=== PATIENT | female | born 1975 | race Caucasian/White ===

== ENCOUNTER 2018-03-26 13:35 | Emergency (ER) | payer OTHER ==
[~2018-03-26] VITALS: Ht 154.9 cm; Wt 55.8 kg
[2018-03-26 14:35] LABS: PREGNANCY TEST, URINE NEGATIVE (NEGATIVE)
[2018-03-26 14:36] LABS: CLARITY,URINE CLOUDY (CLEAR); COLOR,URINE YELLOW (YELLOW); LEUKOCYTE ESTERASE ,URINE 1+ (NEGATIVE); NITRITE,URINE NEGATIVE (NEGATIVE); PROTEIN,URINE DIPSTICK NEGATIVE (NEGATIVE)
[2018-03-26 14:37] LABS: BILIRUBIN,URINE NEGATIVE (NEGATIVE); KETONES,URINE 2+ (NEGATIVE); URINE UROBILINOGEN 0.2 mg/dL (0.2 - 1)
[2018-03-26 14:41] LABS: BASOPHILS % 0.3 % (0.0-1.0); EOSINOPHILS % 0.1 % (0.0-6.0); HEMATOCRIT 40.5 % (34.2-44.1); HEMOGLOBIN 13.6 g/dL (12.0-16.0); LYMPHOCYTES # (AUTO) 0.5 (1.0-3.2); LYMPHOCYTES % 3.2 % (18.0-39.1); MEAN CORPUSCULAR HEMOGLOBIN 31.2 pg (28-32); MEAN CORPUSCULAR HGB CONC 33.6 g/dL (31-35); MEAN CORPUSCULAR VOLUME 92.9 fL (81-99); MONOCYTES # (AUTO) 1.2 (0.2-0.8); MONOCYTES % 7.4 % (4.4-11.3); NEUTROPHILS % 88.4 % (38.7-80.0); PLATELET COUNT 248 x10e3/uL (140-360); RED BLOOD COUNT 4.36 x10e6/uL (3.6-5.1); RED CELL DISTRIBUTION WIDTH 12.4 % (11.7-14.4)
[2018-03-26 14:48] LABS: BACTERIA,URINE FEW /HPF; EPITHELIAL CELLS,URINE MODERATE /LPF; MUCUS,URINE FEW (RARE)
[2018-03-26 15:01] LABS: ALANINE AMINOTRANSFERASE 13 IU/L (0-55); ALBUMIN 4.3 g/dL (3.5-5.0); ALBUMIN/GLOBULIN RATIO 1.5 (0.8-2.0); ALKALINE PHOSPHATASE 38 IU/L (40-150); ANION GAP 13.9 mmol/L (8-16); BLOOD UREA NITROGEN 14 mg/dL (7-26); BUN/CREATININE RATIO 18 (6-25); CALCIUM 10.1 mg/dL (8.4-10.2); CARBON DIOXIDE 27 mmol/L (22-29); CHLORIDE 98 mmol/L (98-107); CREATININE, SERUM 0.79 mg/dL (0.57-1.11); EST GLOMERULAR FILTRATION RATE > 60 ML/MIN (60-); GLUCOSE 91 mg/dL (74-118); POTASSIUM 3.9 mmol/L (3.5-5.1); SODIUM 135 mmol/L (136-145)
[2018-03-26] MEDS ORDERED: MORPHINE SULFATE 2 MG/ML SYR IV STA ×2 (15:23→18:38)
[2018-03-26] MEDS ORDERED: SODIUM CHLORIDE 0.9% 1000ML 1,000 ML IV SCH (15:30)
[2018-03-26] MEDS ORDERED: DIATRIZOATE MEGL/DIATRIZOA SOD 30 ML BTL PO ONE (15:30)
[2018-03-26] MEDS ORDERED: ONDANSETRON HCL 4 MG ORAL DISINTEGRATING TAB PO ONE ×2 (15:30→18:45)
--- NOTE | 2018-03-26 17:21 | Diagnostic Imaging Report ---
PROCEDURE: CT ABDOMEN AND PELVIS WITH CONTRAST TECHNIQUE: The abdomen and pelvis were scanned utilizing a multidetector helical scanner from the diaphragm to the lesser trochanter after the IV administration of 100 cc of Isovue 370 and the oral administration of dilute Gastrografin. Coronal and sagittal multiplanar reformations were obtained. COMPARISON: None. INDICATIONS: LLQ PAIN FINDINGS: LOWER THORAX: Unremarkable. HEPATOBILIARY: No focal hepatic lesions. No biliary ductal dilatation. SPLEEN: No splenomegaly. PANCREAS: No focal masses or ductal dilatation. ADRENALS: No adrenal nodules. KIDNEYS/URETERS: No hydronephrosis, stones, or solid mass lesions. PELVIC ORGANS/BLADDER: Bladder and uterus are unremarkable. No adnexal masses. PERITONEUM / RETROPERITONEUM: No free air or fluid. LYMPH NODES: No lymphadenopathy. VESSELS: Unremarkable GI TRACT: No bowel dilation or evidence of obstruction. Descending and sigmoid colon diverticulosis. There is an approximately 5 cm segment of the proximal sigmoid colon which shows moderate wall thickening and mild to moderate surrounding fat stranding (best seen on coronal image 30-36 (. No foci of extraluminal air or adjacent, well-defined, enhancing fluid collections. Rest of the bowel shows no wall thickening or surrounding inflammation. BONES AND SOFT TISSUES: No acute bony abnormalities. No aggressive lytic lesions. 1.4 x 0.9 cm focal sclerotic lesion in the L4 vertebral body, which has a nonaggressive appearance and likely represents a bone island. Soft tissues are grossly unremarkable. IMPRESSION: 1. Findings consistent with acute proximal sigmoid diverticulitis, in the appropriate clinical setting. No evidence of perforation or adjacent abscess formation. Umesh Chopra M.D. Dictated by: Umesh Chopra M.D. on 03/26/2018 at 17:24 Electronically approved by: Umesh Chopra M.D. on 03/26/2018 at 17:24
[2018-03-26] MEDS ORDERED: METRONIDAZOLE 500MG/NS 100ML 100 ML IV STA (17:30)
[2018-03-26] MEDS ORDERED: CIPROFLOXACIN 400 MG/D5W 200ML 200 ML IV STA (17:30)
[2018-03-26] MEDS ORDERED: IOPAMIDOL 370 MG/ML 200 ML INFUS..BTL INJ ONE (20:41)
[2018-03-26] MEDS ORDERED: SODIUM CHLORIDE 0.9% 50ML 50 ML ONE (20:41)
[2018-03-26] MEDS ORDERED: PROMETHAZINE HCL 25 MG TAB PO ONE (20:45)
[2018-03-26 20:51] VITALS: BP 117/84
[2018-03-26] MEDS ORDERED: CIPRO500 MG PO (20:51)
[2018-03-26] MEDS ORDERED: TYLENOL WITH C1 EACH PO (20:51)
[2018-03-26] MEDS ORDERED: ZOFRAN ODT4 MG SL (20:51)
[2018-03-26] MEDS ORDERED: FLAGYL250 MG PO (20:51)
== END 2018-03-26 21:57 | disposition home or self-care (01) ==
LOC: ER 13:35
DX: R10.32 Left lower quadrant pain (principal); R11.2 Nausea with vomiting, unspecified; K57.32 Diverticulitis of large intestine without perforation or abscess without bleeding; F32.9 Major depressive disorder, single episode, unspecified
CPT/HCPCS: 36415; 74177; 80053; 81001; 81025; 85025; 96374; 99284; J0744; J2270; J7030; Q9967

== ENCOUNTER → 2018-05-18 | Day surgery (SDC) | payer OTHER ==
[~2018-05-18] MED LIST: CIPRO500 MG PO; FENTANYL CITRATE/PF 100MCG/2 ML INJ ONE; FLAGYL250 MG PO; FLUOXETINE HCL20 M1 PO; HYOSCYAMINE SULFATE 0.5 MG/ML AMP ONE; MIDAZOLAM HCL 2 MG/2 ML VIAL ONE; PROPOFOL IV EMULSION 10 MG/ML 50 ML VIAL ONE; TYLENOL WITH C1 EACH PO; WELLBUTRIN SR150 MG PO; ZOFRAN ODT4 MG; ZOFRAN ODT4 MG SL
--- NOTE | 2018-05-18 11:28 | Operative Report ---
DATE OF PROCEDURE: May 18, 2018 PROCEDURE PERFORMED: Colonoscopy and a polypectomy note. REFERRING PHYSICIAN: Dr. Tai Dugan INDICATIONS FOR COLONOSCOPY: History of diverticulitis. MEDICATION: Patient was done under MAC. Please see anesthesiologist note. PROCEDURE IN DETAIL: With the patient in left lateral decubitus position, flexible fiberoptic Olympus colonoscope was inserted into the rectum with ease and advanced all the way to the cecum. It was then withdrawn slowly and the mucosa overlying the cecum, ascending colon, transverse, and descending, other than for scattered diverticular disease, appeared to be within normal limits. One polyp was snared, 1 polyp was hot biopsied from the sigmoid colon. Also diverticular disease involved the sigmoid colon. One minute polyp was hot biopsied from the rectum. The scope was then retroflexed into the distal rectum, and small internal hemorrhoids were noted, none of which was actively bleeding. The scope was then straightened out. It was subsequently withdrawn. Patient tolerated the procedure well. IMPRESSION: 1. Diverticulosis. 2. Sigmoid colon polyps x2, 1 snared and site hemoclipped x2 and 1 hot biopsied. 3. Rectal polyp, hot biopsied. 4. Internal hemorrhoids, none actively bleeding. PLAN: Follow up histology. Initiate high-fiber low-fat diet. Initiate high-fiber supplement. Patient will need a followup colonoscopy in 3 years. Job#: [id number] cc:TAI DUGAN MD
== END | disposition home or self-care (01) ==
LOC: OR 07:02
PROVIDERS: ATTEND Internal Medicine Gastroenterology
DX: Z09 Encounter for follow-up examination after completed treatment for conditions other than malignant neoplasm (principal); K63.5 Polyp of colon; K62.1 Rectal polyp; K57.92 Diverticulitis of intestine, part unspecified, without perforation or abscess without bleeding; K64.8 Other hemorrhoids; F32.9 Major depressive disorder, single episode, unspecified; Z88.8 Allergy status to other drugs, medicaments and biological substances
CPT/HCPCS: 45384; 45385; 81025; J1980; J2250; 44391

== ENCOUNTER 2019-09-29 04:04 | Emergency (ER) | payer OTHER ==
[~2019-09-29] VITALS: Ht 154.9 cm; Wt 55.8 kg
[~2019-09-29 04:04] MED LIST changes: -FENTANYL CITRATE/PF 100MCG/2 ML INJ ONE; -HYOSCYAMINE SULFATE 0.5 MG/ML AMP ONE; -MIDAZOLAM HCL 2 MG/2 ML VIAL ONE; -PROPOFOL IV EMULSION 10 MG/ML 50 ML VIAL ONE
[2019-09-29] MEDS ORDERED: KETOROLAC TROMETHAMINE 30 MG/ML VIAL IV STA (04:51)
[2019-09-29] MEDS ORDERED: ONDANSETRON HCL INJ 2MG/ML 2ML 2 MG/ML VIAL IV STA (04:53)
[2019-09-29 04:59] LABS: BASOPHILS % 0.4 % (0.0-1.0); EOSINOPHILS # (AUTO) 0.2 (0.0-0.4); EOSINOPHILS % 2.5 % (0.0-6.0); HEMATOCRIT 39.3 % (34.2-44.1); HEMOGLOBIN 12.9 g/dL (12.0-16.0); LYMPHOCYTES # (AUTO) 1.8 (1.0-3.2); LYMPHOCYTES % 19.5 % (18.0-39.1); MEAN CORPUSCULAR HEMOGLOBIN 31.1 pg (28-32); MEAN CORPUSCULAR HGB CONC 32.8 g/dL (31-35); MEAN CORPUSCULAR VOLUME 94.7 fL (81-99); MONOCYTES # (AUTO) 0.7 (0.2-0.8); NEUTROPHILS # (AUTO) 6.5 (2.1-6.9); NEUTROPHILS % 70.1 % (38.7-80.0); PLATELET COUNT 254 x10e3/uL (140-360); RED BLOOD COUNT 4.15 x10e6/uL (3.6-5.1); RED CELL DISTRIBUTION WIDTH 12.3 % (11.7-14.4)
[2019-09-29 05:00] LABS: BILIRUBIN,URINE NEGATIVE (NEGATIVE); CLARITY,URINE SL CLOUDY (CLEAR); COLOR,URINE YELLOW (YELLOW); KETONES,URINE NEGATIVE (NEGATIVE); LEUKOCYTE ESTERASE ,URINE NEGATIVE (NEGATIVE); NITRITE,URINE NEGATIVE (NEGATIVE); PROTEIN,URINE DIPSTICK NEGATIVE (NEGATIVE); URINE UROBILINOGEN 0.2 mg/dL (0.2 - 1)
[2019-09-29 05:11] LABS: ALANINE AMINOTRANSFERASE 12 IU/L (0-55); ALBUMIN 3.7 g/dL (3.5-5.0); ALBUMIN/GLOBULIN RATIO 1.4 (0.8-2.0); ALKALINE PHOSPHATASE 36 IU/L (40-150); ANION GAP 12.5 mmol/L (8-16); BLOOD UREA NITROGEN 14 mg/dL (7-26); BUN/CREATININE RATIO 15 (6-25); CARBON DIOXIDE 24 mmol/L (22-29); CHLORIDE 102 mmol/L (98-107); CREATININE, SERUM 0.91 mg/dL (0.57-1.11); EST GLOMERULAR FILTRATION RATE > 60 ML/MIN (60-); GLUCOSE 100 mg/dL (74-118); POTASSIUM 3.5 mmol/L (3.5-5.1); SODIUM 135 mmol/L (136-145)
[2019-09-29] MEDS ORDERED: DIATRIZOATE MEGL/DIATRIZOA SOD 30 ML BTL PO ONE (05:23)
[2019-09-29 05:25] LABS: BACTERIA,URINE MANY /HPF; EPITHELIAL CELLS,URINE MODERATE /LPF; RBC,URINE 0-5 /HPF (0-5)
[2019-09-29] MEDS ORDERED: SODIUM CHLORIDE 0.9% 50ML 50 ML ONE (06:25)
[2019-09-29] MEDS ORDERED: IOPAMIDOL 370 MG/ML 200 ML INFUS..BTL INJ ONE (06:26)
--- NOTE | 2019-09-29 07:00 | NUR ---
report given to wandy pryor
--- NOTE | 2019-09-29 07:25 | Diagnostic Imaging Report ---
EXAM: CT Abdomen and Pelvis WITH contrast INDICATION: Right lower quadrant abdominal pain, history of diverticulitis COMPARISON: CT abdomen/pelvis with contrast 03/26/2018. TECHNIQUE: Abdomen and pelvis were scanned utilizing a multidetector helical scanner from the lung base to the pubic symphysis after administration of IV contrast. Coronal and sagittal reformations were obtained. Routine protocol was performed. Scan was performed when during portal venous phase. IV CONTRAST: 100 cc of Isovue 370 ORAL CONTRAST: Gastrografin COMPLICATIONS: None RADIATION DOSE: Total DLP: 332.7 mGy*cm Estimated effective dose: (DLP x 0.015 x size factor) mSv CTDIvol has been reviewed. It is below the limits set by the Radiation Protocol Committee (RPC). FINDINGS: Somewhat limited secondary to motion artifact in the upper abdomen. LINES and TUBES: None. LOWER THORAX: Unremarkable HEPATOBILIARY: The hepatic dome is partially excluded from the [id number]. No evidence of focal lesion. No biliary ductal dilation. GALLBLADDER: No radio-opaque stones or sludge. No wall thickening. SPLEEN: No splenomegaly. PANCREAS: No focal masses or ductal dilatation. ADRENALS: No adrenal nodules KIDNEYS/URETERS: Kidneys enhance symmetrically. No evidence of hydronephrosis, solid mass, or stone. GI TRACT: There is colonic diverticulosis with focal wall thickening and mild surrounding stranding within the distal descending colon. PELVIC ORGANS/BLADDER: Unremarkable. LYMPH NODES: No lymphadenopathy. VESSELS: Minimal atherosclerotic calcifications in the abdominal aorta. PERITONEUM / RETROPERITONEUM: No free air or fluid. BONES AND SOFT TISSUES: Unchanged sclerotic lesion in the posterior aspect of the L4 vertebral body (sagittal image 65, 1198 HU), likely a bone island. CONCLUSION: Acute mild descending colonic diverticulitis. No evidence of perforation or abscess. Signed by: Dr. Kirsten Bolaños MD on 09/29/2019 7:22 AM
[2019-09-29 07:36] VITALS: BP 127/84
== END 2019-09-29 07:48 | disposition home or self-care (01) ==
LOC: ER 04:04
DX: R10.31 Right lower quadrant pain (principal)
CPT/HCPCS: 36415; 74177; 80053; 81001; 81025; 83690; 85025; 99284; J1885; J2405; Q9967

== ENCOUNTER → 2019-11-29 | Day surgery (SDC) | payer OTHER ==
[~2019-11-29] MED LIST changes: +FENTANYL CITRATE/PF 100MCG/2 ML INJ ONE; +HYOSCYAMINE 0.125 MG TAB ONE; +KETAMINE HCL INJ 50 MG/ML 10 ML VIAL ONE; +MIDAZOLAM HCL 2 MG/2 ML VIAL ONE; +PROPOFOL IV EMULSION 10 MG/ML 50 ML VIAL ONE; +TOPIRAMATE25 MG PO
[2019-11-29 10:03] VITALS: BP 92/77
--- NOTE | 2019-11-29 17:50 | Operative Report ---
DATE OF PROCEDURE: 11/29/2019 SURGEON: Ra Muniz MD PROCEDURE: Colonoscopy with polypectomy. INDICATIONS FOR COLONOSCOPY: Personal history of colon polyps, history of diverticulitis. Indication. MEDICATIONS: The patient was done under MAC, please see anesthesiologist's note. PROCEDURE IN DETAIL: With the patient in left lateral decubitus position, a flexible fiberoptic Olympus colonoscope was inserted into the rectum with ease and advanced all the way to the cecum. The scope was then withdrawn slowly. Mucosa overlying the cecum appeared to be within normal limits. One polyp was hot biopsied from the distal ascending colon. Diverticular disease was scattered pretty much throughout the colon, but was more prominent in the left colon. The transverse colon other than for diverticulosis appeared to be within normal limits. One polyp was removed per cold biopsy forceps from the proximal descending colon. The rest of the descending and sigmoid revealed some diverticular disease. The mucosa overlying the rectum appeared to be within normal limits. The scope was then retroflexed into the distal rectum and small internal hemorrhoids were noted, none of which was actively bleeding. The scope was then straightened out. It was subsequently withdrawn. The patient tolerated the procedure well. IMPRESSION: 1. Ascending colon polyp, hot biopsied. 2. Diverticulosis. 3. Descending colon polyp, cold biopsied. 4. Internal hemorrhoids, none actively bleeding. PLAN: Follow up histology. Initiate high-fiber, low-fat diet. Initiate high-fiber supplement. The patient might benefit from a followup colonoscopy in 3 to 5 years. Ra Muniz MD [facility] [place] /[id number] cc: Rustam La
== END | disposition home or self-care (01) ==
LOC: OR 06:00
PROVIDERS: ATTEND Internal Medicine Gastroenterology
DX: K57.92 Diverticulitis of intestine, part unspecified, without perforation or abscess without bleeding (principal); D12.2 Benign neoplasm of ascending colon; K64.8 Other hemorrhoids; Z88.8 Allergy status to other drugs, medicaments and biological substances; G70.9 Myoneural disorder, unspecified; F32.9 Major depressive disorder, single episode, unspecified; Z68.25 Body mass index [BMI] 25.0-25.9, adult
CPT/HCPCS: 45380; 45384; 81025; J2250; J2704; J3010

== ENCOUNTER → 2020-02-27 | Outpatient (CLI) | payer OTHER ==
[~2020-02-27] MED LIST changes: +DIATRIZOATE MEGL/DIATRIZOA SOD 30 ML BTL PO ONE; -FENTANYL CITRATE/PF 100MCG/2 ML INJ ONE; -HYOSCYAMINE 0.125 MG TAB ONE; +IOPAMIDOL 370 MG/ML 200 ML INFUS..BTL INJ ONE; -KETAMINE HCL INJ 50 MG/ML 10 ML VIAL ONE; -MIDAZOLAM HCL 2 MG/2 ML VIAL ONE; -PROPOFOL IV EMULSION 10 MG/ML 50 ML VIAL ONE; +SODIUM CHLORIDE 0.9% 50ML 50 ML ONE
--- NOTE | 2020-02-27 15:21 | Diagnostic Imaging Report ---
ADDENDUM #1 There was a typographical error in the original report. The GI TRACT section should read: GI TRACT: Mild colonic DIVERTICULOSIS. No CT evidence of diverticulitis. No abnormal bowel thickening. No bowel obstruction. Signed by: Mike Campos MD on 03/03/2020 12:04 PM ORIGINAL REPORT EXAM: CT Abdomen and Pelvis WITH intravenous contrast INDICATION: Right lower quadrant abdominal pain COMPARISON: CT abdomen and pelvis of 09/29/2019 TECHNIQUE: Abdomen and pelvis were scanned utilizing a multidetector helical scanner from the lung base to the pubic symphysis after administration of IV contrast. Coronal and sagittal reformations were obtained. Routine protocol was performed. Scan was performed during portal venous phase. IV CONTRAST: 100mL of Isovue 370 ORAL CONTRAST: Gastrografin RADIATION DOSE: Total DLP: 228 mGy*cm Dose modulation, iterative reconstruction, and/or weight based adjustment of the mA/kV was utilized to reduce the radiation dose to as low as reasonably achievable. FINDINGS: LOWER THORAX: Normal. HEPATOBILIARY: No focal hepatic lesions. No biliary ductal dilatation. The gallbladder appears unremarkable. SPLEEN: No splenomegaly. PANCREAS: No focal masses or ductal dilatation. ADRENALS: No adrenal nodules. KIDNEYS/URETERS: No hydronephrosis, stones, or solid mass lesions. PELVIC ORGANS/BLADDER: Unremarkable. PERITONEUM / RETROPERITONEUM: No free air or fluid. LYMPH NODES: No lymphadenopathy. VESSELS: Unremarkable. GI TRACT: Mild colonic diverticulitis. No CT evidence of diverticulitis. No abnormal bowel thickening. No bowel obstruction. BONES AND SOFT TISSUES: Unchanged 1.1 cm sclerotic lesion at the posterior aspect of the L4 vertebral body most likely represents a bone island. No acute osseous injury. IMPRESSION: Diverticulosis without CT evidence of diverticulitis. Signed by: Mike Campos MD on 02/27/2020 3:18 PM
== END ==
LOC: CT 12:46
PROVIDERS: ATTEND Internal Medicine Gastroenterology
DX: R10.31 Right lower quadrant pain (principal); K57.92 Diverticulitis of intestine, part unspecified, without perforation or abscess without bleeding
CPT/HCPCS: 74177; Q9967

== ENCOUNTER → 2020-03-24 | Day surgery (SDC) | payer OTHER ==
[~2020-03-24] MED LIST changes: -DIATRIZOATE MEGL/DIATRIZOA SOD 30 ML BTL PO ONE; -IOPAMIDOL 370 MG/ML 200 ML INFUS..BTL INJ ONE; +LIDOCAINE HCL 2% LOCAL INJ 5 ML SDV VIAL INJ ONE; +METOCLOPRAMIDE HCL 10 MG/2ML VIAL ONE; +PANTOPRAZOLE 40 MG 10ML VIAL ONE; +PROPOFOL IV EMULSION 10 MG/ML 20 ML VIAL ONE; -SODIUM CHLORIDE 0.9% 50ML 50 ML ONE
[2020-03-24 10:15] VITALS: BP 114/71
--- NOTE | 2020-03-24 12:34 | Operative Report ---
DATE OF PROCEDURE: 03/24/2020 SURGEON: Ra Muniz MD PROCEDURE: EGD with biopsies. INDICATIONS FOR PROCEDURE: Upper abdominal pain, nausea. MEDICATIONS: The patient was done under MAC, please see anesthesiologist's note. PROCEDURE IN DETAIL: With the patient in left lateral decubitus position, a flexible fiberoptic Olympus gastroscope was introduced into the esophagus under direct visualization without any difficulty. There was some patchy erythema noted in distal esophagus. The scope was then advanced with ease into the stomach, traversing a small sliding hiatal hernia. Mucosa overlying the antrum and the body revealed some patchy erythema and low-grade to moderate edema. Biopsies were obtained, sent to stain for H. pylori. Pylorus was of normal contour and shape, it was intubated with ease and the scope was advanced all the way to the second portion of the duodenum. Biopsies were obtained from the proximal second portion and duodenal bulb to rule out sprue. The scope was then withdrawn back into the stomach and retroflexed, mucosa overlying the fundus and cardia appeared to be within normal limits. The scope was then straightened out, it was subsequently withdrawn. The patient tolerated the procedure well. IMPRESSION: 1. Distal esophagitis, mild. 2. Small sliding hiatal hernia. 3. Gastritis, biopsied, biopsies sent to stain for H. pylori. 4. Rule out sprue. PLAN: 1. Follow up histology. 2. Initiate Protonix 40 mg one p.o. q.a.m. a.c. Ra Muniz MD [facility] [place] /[id number] cc: Rustam La
== END | disposition home or self-care (01) ==
LOC: OR 07:24
PROVIDERS: ATTEND Internal Medicine Gastroenterology
DX: K29.70 Gastritis, unspecified, without bleeding (principal); K20.9 Esophagitis, unspecified; K44.9 Diaphragmatic hernia without obstruction or gangrene; K63.5 Polyp of colon; K57.30 Diverticulosis of large intestine without perforation or abscess without bleeding; R42 Dizziness and giddiness; F41.9 Anxiety disorder, unspecified; F32.9 Major depressive disorder, single episode, unspecified; Z88.8 Allergy status to other drugs, medicaments and biological substances; Z01.812 Encounter for preprocedural laboratory examination; Z11.59 Encounter for screening for other viral diseases; Z87.19 Personal history of other diseases of the digestive system
CPT/HCPCS: 43239; 81025; 87635; C9113; J2001; J2704; J2765

== ENCOUNTER → 2020-04-15 | Outpatient (CLI) | payer OTHER ==
[~2020-04-15] MED LIST changes: -LIDOCAINE HCL 2% LOCAL INJ 5 ML SDV VIAL INJ ONE; -METOCLOPRAMIDE HCL 10 MG/2ML VIAL ONE; -PANTOPRAZOLE 40 MG 10ML VIAL ONE; -PROPOFOL IV EMULSION 10 MG/ML 20 ML VIAL ONE
--- NOTE | 2020-04-15 15:14 | Diagnostic Imaging Report ---
EXAM: Right upper quadrant abdominal ultrasound INDICATION: Right upper quadrant pain COMPARISON: None. TECHNIQUE: Transverse and longitudinal images of the right upper quadrant abdomen were obtained FINDINGS: Liver: Size: 12.6 cm in the right midclavicular line, normal Appearance: Normal echogenicity, smooth contour Mass: No focal masses Gallbladder: No gallbladder distension, pericholecystic fluid, wall thickening, stone, or reported sonographic Lopez's sign. Gallbladder wall measures 0.2 mm. Bile Ducts: Intrahepatic Ducts: No dilatation Extrahepatic Ducts: Common bile duct measures 0.2 mm Pancreas: Visualized portions of the pancreatic head, neck and proximal body are normal. Kidney: The right kidney measures 9.0 cm without evidence of hydronephrosis or stone. Vessels: Aorta: Visualized portions are normal Inferior Vena Cava: Visualized portions are normal Main Portal Vein: 0.8 cm, normal size with hepatopetal flow. Free Fluid: No ascites or pleural effusion IMPRESSION: No sonographic evidence of cholelithiasis or cholecystitis. Signed by: Mike Campos MD on 04/15/2020 3:10 PM
--- NOTE | 2020-04-15 16:34 | Diagnostic Imaging Report ---
Hepatobiliary Scan with Gallbladder Ejection Fraction Clinical information: RUQ abdominal pain Report: Following intravenous administration of 6.5 millicuries of Tc-99m mebrofenin, dynamic images of the abdomen in the anterior projection were obtained through 30 minutes. Sincalide (CCK analog) 1.2 micrograms was administered intravenously over 30 minutes with additional imaging for determination of gallbladder ejection fraction. Perfusion to the liver is normal. Extraction of tracer from the blood pool by the liver parenchyma is normal. Tracer is seen promptly within the biliary tract. The gallbladder begins to fill by 6 minutes post-injection of tracer and fills adequately. Tracer is seen in the small bowel by 21 minutes. The gallbladder ejection fraction with administration of sincalide is 96% (normal greater than 40%). Impression: 1. Filling of the gallbladder excludes the diagnosis of acute cystic duct obstruction/acute cholecystitis. 2. Normal gallbladder ejection fraction of 96% does not support the clinical diagnosis of chronic cholecystitis/gallbladder dyskinesia. Signed by: Dr. Jodi Stuart M.D. on 04/15/2020 4:31 PM
== END ==
LOC: US 13:05
PROVIDERS: ATTEND Internal Medicine Gastroenterology
DX: R10.11 Right upper quadrant pain (principal)
CPT/HCPCS: 76705; 78227; 81025; A9537

== ENCOUNTER 2021-02-10 23:11 | Emergency (ER) | payer OTHER ==
[~2021-02-10] VITALS: Ht 154.9 cm; Wt 55.8 kg
[2021-02-10] MEDS ORDERED: KETOROLAC TROMETHAMINE 30 MG/ML VIAL IM STA (23:57)
[2021-02-10] MEDS ORDERED: LIDOCAINE 4% PATCH TP STA (23:57)
[2021-02-11] MEDS ORDERED: ACETAMINOPHEN/CODEINE 300MG - 30MG TAB PO ONE
[2021-02-11 00:49] LABS: CLARITY,URINE CLEAR (CLEAR); COLOR,URINE YELLOW (YELLOW); KETONES,URINE NEGATIVE (NEGATIVE); LEUKOCYTE ESTERASE ,URINE NEGATIVE (NEGATIVE); NITRITE,URINE NEGATIVE (NEGATIVE); PROTEIN,URINE DIPSTICK NEGATIVE (NEGATIVE); URINE UROBILINOGEN 0.2 mg/dL (0.2 - 1)
[2021-02-11 00:57] LABS: AMORPHOUS SEDIMENT,URINE RARE (FEW); BACTERIA,URINE FEW /HPF; EPITHELIAL CELLS,URINE MODERATE /LPF; RBC,URINE 0-5 /HPF (0-5); WBC,URINE (MAN) 0-5 /HPF (0-5)
[2021-02-11] MEDS ORDERED: TYLENOL # 31 EA PO (01:58)
[2021-02-11 02:36] VITALS: BP 139/66
== END 2021-02-11 02:38 | disposition home or self-care (01) ==
LOC: ER 23:43
DX: G57.02 Lesion of sciatic nerve, left lower limb (principal); Z87.19 Personal history of other diseases of the digestive system
CPT/HCPCS: 73502; 81001; 81025; 99283; J1885